=== PATIENT | female | born 1990 | race Caucasian/White ===

== ENCOUNTER 2021-03-02 05:36 | Inpatient (IN) | payer BC, MEDICAID ==
[2021-03-02] VITALS (12 sets, daily range): BP systolic 110–147; BP diastolic 58–115
[~2021-03-02] VITALS: Ht 154.9 cm; Wt 78.5 kg
[~2021-03-02 05:36] MED LIST: IRON-6 PO; PREN-196 PO
[2021-03-02] MEDS ORDERED: LACTATED RINGERS 500 ML 500 ML IV PRN (06:30)
[2021-03-02] MEDS ORDERED: ROPIVACAINE 0.2% 100ML VIAL 100 ML EP PRN (06:30)
[2021-03-02] MEDS ORDERED: NALOXONE HCL 0.4 MG/1 ML ML IV PRN (06:30)
[2021-03-02] MEDS ORDERED: LACTATED RINGERS 1000ML 1,000 ML IV PRN (06:30)
[2021-03-02] MEDS ORDERED: OXYTOCIN-LR 20 UNITS/1000 ML 1,000 ML IV SCH (06:30)
[2021-03-02] MEDS ORDERED: EPHEDRINE SULFATE 50 MG/ML AMPULE IVP PRN (06:30)
[2021-03-02] MEDS ORDERED: PROMETHAZINE HCL 25 MG/ML 1ML AMPULE IM PRN ×2 (06:30→18:30)
[2021-03-02] MEDS ORDERED: MEPERIDINE-PF 50 MG/ML SYG IVP PRN (06:30)
[2021-03-02] MEDS ORDERED: OXYTOCIN-LR 20 UNITS/1000 ML 1,000 ML IV PRN ×2 (06:30→18:30)
[2021-03-02 06:57] LABS: APPEARANCE,URINE CLOUDY (CLEAR); BILIRUBIN,URINE NEGATIVE (NEGATIVE); COLOR,URINE YELLOW (YELLOW); GLUCOSE, URINE (UA) NEGATIVE (NEGATIVE); KETONES,URINE NEGATIVE (NEGATIVE); LEUKOCYTE ESTERASE ,URINE LARGE (NEGATIVE); NITRATE,URINE NEGATIVE (NEGATIVE); OCCULT BLOOD,URINE TRACE-INTACT (NEGATIVE); PROTEIN,URINE NEGATIVE (NEGATIVE); UROBILINOGEN,URINE 0.2 mg/dL (0.2-1.0)
[2021-03-02 07:23] LABS: HEMATOCRIT 31.5 % (36-48); MEAN CORPUSCULAR HEMOGLOBIN 31.1 pg (27.0-33.0); MEAN CORPUSCULAR VOLUME 91.6 fL (79-99); RED BLOOD CELL COUNT(AUTO) 3.44 MIL/uL (4.00-5.50); RED CELL DISTRIBUTION WIDTH 13.2 % (11.0-15.5); WHITE BLOOD COUNT (AUTO) 9.4 K/uL (4.8-10.8)
[2021-03-02 07:30] LABS: BACTERIA,URINE Many /HPF (None Seen); RBC,URINE 0-1 /HPF (0-1); WBC,URINE 26-50 /HPF (0-1)
[2021-03-02] MEDS ORDERED: FENTANYL CITRATE PF 50 MCG/1 ML 2ML VIAL ONE (10:00)
[2021-03-02] MEDS ORDERED: CEFAZOLIN SODIUM 1 GM VIAL ONE (16:20)
[2021-03-02] MEDS ORDERED: OXYTOCIN 10 USP UNITS/ML ONE (16:57)
[2021-03-02] MEDS ORDERED: ONDANSETRON 4MG INJ ONE (16:57)
[2021-03-02] MEDS ORDERED: LACTATED RINGERS 1000ML 1,000 ML IV SCH (17:00)
[2021-03-02] MEDS ORDERED: CEFAZOLIN SODIUM 1 GM VIAL IVP PRN (17:00)
[2021-03-02] MEDS ORDERED: PHENYLEPHRINE HCL 10 MG/ML 1ML VIAL IV ONE (17:06)
[2021-03-02] MEDS ORDERED: CEFAZOLIN SODIUM 2 GM VIAL IV ONE (17:07)
[2021-03-02] MEDS ORDERED: MORPHINE PF 100MG/10ML AMP IV ONE (17:19)
[2021-03-02] MEDS ORDERED: EPHEDRINE SULFATE 50 MG/ML AMPULE ONE (17:46)
[2021-03-02] MEDS ORDERED: 0.9%NACL 10ML VIAL IVP PRN (18:30)
[2021-03-02] MEDS ORDERED: DEXTROSE 5 %-0.45 % NACL 1,000 ML IV PRN (18:30)
[2021-03-02] MEDS ORDERED: MEPERIDINE-PF 75 MG/ML SYG IM PRN (18:30)
[2021-03-02] MEDS ORDERED: DOCU100C33 PO (19:06)
[2021-03-03] MEDS ORDERED: ONDANSETRON 4MG INJ IVP PRN
[2021-03-03] MEDS: CEFAZOLIN SODIUM 1 GM VIAL IVP SCH ×3 (01:00→17:00)
[2021-03-03] MEDS ORDERED: DIPH,PERTUSS(ACELL),TET VAC/PF 0.5 ML VIAL IM ONE (03:00)
[2021-03-03 04:44] VITALS: BP 107/56
[2021-03-03 07:02] LABS: HEMATOCRIT 26.9 % (36-48); MEAN CORPUSCULAR HEMOGLOBIN 31.7 pg (27.0-33.0); MEAN CORPUSCULAR HGB CONC 33.1 g/dL (32.0-36.0); MEAN CORPUSCULAR VOLUME 95.7 fL (79-99); RED BLOOD CELL COUNT(AUTO) 2.81 MIL/uL (4.00-5.50); RED CELL DISTRIBUTION WIDTH 13.1 % (11.0-15.5); WHITE BLOOD COUNT (AUTO) 15.6 K/uL (4.8-10.8)
[2021-03-03 07:43] VITALS: BP 106/61
[2021-03-03] MEDS ORDERED: DOCUSATE SODIUM 100 MG CAP PO SCH (09:00)
[2021-03-03] MEDS ORDERED: SIMETHICONE 80 MG TAB.CHEW PO PRN (09:00)
[2021-03-03] MEDS ORDERED: ACETAMINOPHEN 500 MG TABLET PO PRN (09:00)
[2021-03-03] MEDS ORDERED: HYDROCODONE/ACETAMINOPHEN 5/325 MG TAB PO PRN (09:00)
[2021-03-03] MEDS ORDERED: IBUPROFEN 600 MG TABLET PO PRN (09:00)
[2021-03-03] MEDS ORDERED: BISACODYL 10 MG SUPP.RECT RC PRN (09:00)
[2021-03-03] MEDS: ACETAMINOPHEN WITH CODEINE 1 TAB TAB PO PRN ×2 (09:35→17:48)
[2021-03-03 11:32] VITALS: BP 121/74
[2021-03-03 16:23] VITALS: BP 116/72
[2021-03-03 19:15] VITALS: BP 125/65
== END 2021-03-03 21:30 | disposition home or self-care (01) | DRG 785 ==
LOC: LDH 05:36 → WSH 19:35
PROVIDERS: ADMIT Obstetrics & Gynecology; ATTEND Obstetrics & Gynecology
PROC: 0UB70ZZ Excision of Bilateral Fallopian Tubes, Open Approach (ICD-10-PCS; 2021-03-02)
PROC: 3E0234Z Introduction of Serum, Toxoid and Vaccine into Muscle, Percutaneous Approach (ICD-10-PCS; 2021-03-02)
PROC: 10D00Z1 Extraction of Products of Conception, Low, Open Approach (ICD-10-PCS; principal; 2021-03-02 17:00)
DX: O62.2 Other uterine inertia (principal); O69.1XX0 Labor and delivery complicated by cord around neck, with compression, not applicable or unspecified; Z37.0 Single live birth; Z3A.40 40 weeks gestation of pregnancy; Z23 Encounter for immunization; Z30.2 Encounter for sterilization
CPT/HCPCS: 36415; 59510; 81001; 85027; 86592; 86701; 86850; 86900; 86901; 87088; 87340; 87390; 90715; A4314; A4344; A4606; G0378; J0690; J2274; J2370; J2405; J2590; J2795; J3010; J3490

== ENCOUNTER 2022-11-29 07:41 | Emergency (ER) | payer BC, MEDICAID ==
[~2022-11-29] VITALS: Ht 154.9 cm; Wt 63.5 kg
[~2022-11-29 07:41] MED LIST changes: +DOCU100C33 PO
[2022-11-29 08:28] LABS: SARS-CoV-2, RNA, NAAT NEGATIVE SARS CoV-2 (NEGATIVE)
[2022-11-29] MEDS ORDERED: KETOROLAC 60 MG VIAL (30MG/ML) IM ONE (08:30)
[2022-11-29] MEDS ORDERED: CEFTRIAXONE 2GM VIAL IJ ONE (08:30)
[2022-11-29 08:32] LABS: INFLUENZA TYPE A Negative For Type A (NEGATIVE); INFLUENZA TYPE B Negative For Type B (NEGATIVE)
[2022-11-29 08:43] LABS: APPEARANCE,URINE CLEAR (CLEAR); BILIRUBIN,URINE NEGATIVE (NEGATIVE); GLUCOSE, URINE (UA) NEGATIVE (NEGATIVE); KETONES,URINE >=80 mg/dL (NEGATIVE); LEUKOCYTE ESTERASE ,URINE NEGATIVE Leu/uL (NEGATIVE); NITRATE,URINE NEGATIVE (NEGATIVE); OCCULT BLOOD,URINE NEGATIVE (NEGATIVE); PH,URINE 6.5 (5.0-8.0); PROTEIN,URINE 20 mg/dL (NEGATIVE); UROBILINOGEN,URINE 0.2 mg/dL (0.2-1.0)
[2022-11-29 08:45] LABS: HCG,QUALITATIVE URINE NEGATIVE (NEGATIVE)
[2022-11-29] MEDS ORDERED: LIDOCAINE HCL 1% 20 ML VIAL ONE (08:45)
[2022-11-29 08:46] LABS: ADD UA MICROSCOPIC YES; COLOR,URINE YELLOW (YELLOW)
[2022-11-29 08:48] LABS: MUCUS,URINE RARE LPF (None Seen); RBC,URINE 0-1 /HPF (0-1); SQUAMOUS EPITHELIAL CELL,UR RARE /HPF (0-2); WBC,URINE 0-1 /HPF (0-1)
[2022-11-29] MEDS ORDERED: AMOX-427 PO (10:28)
[2022-11-29] MEDS ORDERED: NAPR-1192 PO (10:28)
[2022-11-29 10:42] VITALS: BP 110/57; PULSE 88; RESP 18; O2SAT 98
== END 2022-11-29 10:43 | disposition home or self-care (01) ==
LOC: EDH 07:41
DX: H92.02 Otalgia, left ear (principal); H66.92 Otitis media, unspecified, left ear; J03.80 Acute tonsillitis due to other specified organisms; Z20.822 Contact with and (suspected) exposure to COVID-19; Z79.899 Other long term (current) drug therapy
CPT/HCPCS: 99284; 96374; 87635; 87880; 87804 ×2; 81001; 81025; 96372; C9803; J0696; J1885